=== PATIENT | male | born 1970 | race Caucasian/White ===

== ENCOUNTER 2018-03-04 05:47 | Emergency (ER) | payer BC, OTHER ==
[2018-03-04] MEDS ORDERED: LIDOCAINE 2% INJ (20 MG/ML) 20 ML MDV INJ ONE (06:37)
[2018-03-04] MEDS ORDERED: LIDOCAINE 1% INJ-PF (10 MG/ML) 30 ML SDV ONE (07:15)
--- NOTE | 2018-03-04 07:55 | ER Document Report ---
ED Wound - General Chief Complaint: Wound Infection Stated Complaint: KNEE PAIN Time Seen by Provider: 03/04/18 06:35 Information source: Patient Notes: History of complain-47 years old male presents today with right lateral side of the knee having a wound for the last 4 days. Initially started like a small pimple and then it spread. He was seen in urgent care and treated with Bactrim 1 tablet twice a day for the last 3 days. Without improvement he presents to the ED. No fever chills or other constitutional symptoms. No difficulty in walking. No difficulty in bending the knee. REVIEW OF SYSTEMS: CONSTITUTIONAL : Denies fever, chills, or sweats. Denies recent illness. EENT: Denies eye, ear, throat, or mouth pain or symptoms. Denies nasal or sinus congestion or discharge. Denies throat, tongue, or mouth swelling or difficulty swallowing. CARDIOVASCULAR: Denies chest pain. Denies palpitations or racing or irregular heart beat. Denies ankle edema. RESPIRATORY: Denies cough, cold, or chest congestion. Denies shortness of breath, difficulty breathing, or wheezing. GASTROINTESTINAL: Denies abdominal pain or distention. Denies nausea, vomiting , or diarrhea. Denies blood in vomitus, stools, or per rectum. Denies black, tarry stools. Denies constipation. GENITOURINARY: Denies difficulty urinating, painful urination, burning, frequency, blood in urine, or discharge. MUSCULOSKELETAL: Denies back or neck pain or stiffness. Denies joint pain or swelling. SKIN: Denies rash, lesions or sores. HEMATOLOGIC : Denies easy bruising or bleeding. LYMPHATIC: Denies swollen, enlarged glands. NEUROLOGICAL: Denies confusion or altered mental status. Denies passing out or loss of consciousness. Denies dizziness or lightheadedness. Denies headache. Denies weakness or paralysis or loss of use of either side. Denies problems with gait or speech. Denies sensory loss, numbness, or tingling. Denies seizures. PSYCHIATRIC: Denies anxiety or stress. Denies depression, suicidal ideation, or homicidal ideation. ALL OTHER SYSTEMS REVIEWED AND NEGATIVE. Dictation was performed using [employer] voice recognition software PHYSICAL EXAMINATION: GENERAL: Well-appearing, well-nourished and in no acute distress. HEAD: Atraumatic, normocephalic. EYES: Pupils equal round and reactive to light, extraocular movements intact, sclera anicteric, conjunctiva are normal. ENT: Nares patent, oropharynx clear without exudates. Moist mucous membranes. NECK: Normal range of motion, supple without lymphadenopathy LUNGS: Breath sounds clear to auscultation bilaterally and equal. No wheezes rales or rhonchi. HEART: Regular rate and rhythm without murmurs ABDOMEN: Soft, nontender, nondistended abdomen. No guarding, no rebound. No masses appreciated. Musculoskeletal: Normal range of motion, no pitting or edema. No cyanosis. Examination of the knee- NEUROLOGICAL: Cranial nerves grossly intact. Normal speech, normal gait. Normal sensory, motor exams PSYCH: Normal mood, normal affect. SKIN: Skin over the right knee shows, 2 cm area of induration and purulent discharge surrounded by 6 cm circumference Zuly erythema which is warm and tender to touch. Examination of the knee-there is no fluid fluctuation in the joint, he was able to flex and extend. - HPI Patient complains to provider of: Wound infection. No: Abrasion, Laceration, Puncture wound, Stab wound, Crush injury, Contusion, Hematoma, Post surgical bleeding, Post surgical problem, Incision problem, Other Onset/Duration: Gradual Quality of pain: Burning Severity: Moderate Pain Level: 2 Context: denies: Injury, Spontaneous, Work related, Other Skin Color: No: Normal, [place], Pale, Flushed, Erythema, Ang, Dusky, Mottled, Ashen, Cyanotic, Blackened, [place], Jaundiced, Hypopigmentation, Petechiae, Ecchymosis, Hyperpigmentation, Plethora, Other - Related Data Allergies/Adverse Reactions: No Known Allergies Allergy (Unverified 01/11/11 08:26) Past Medical History - Social History Smoking Status: Never Smoker Cigarette use (# per day): No Chew tobacco use (# tins/day): No Smoking Education Provided: No Frequency of alcohol use: Rare Drug Abuse: None Lives with: Family Family History: Reviewed & Not Pertinent Patient has suicidal ideation: No Patient has homicidal ideation: No - Past Medical History Cardiac Medical History: Denies: Hx Coronary Artery Disease, Hx Heart Attack, Hx Hypertension Pulmonary Medical History: Denies: Hx Asthma, Hx Bronchitis, Hx COPD, Hx Pneumonia Neurological Medical History: Denies: Hx Cerebrovascular Accident, Hx Seizures Renal/ Medical History: Denies: Hx Peritoneal Dialysis Musculoskeltal Medical History: Denies Hx Arthritis Past Surgical History: Denies: Hx Pacemaker Review of Systems - Review of Systems Constitutional: denies: No symptoms reported, See HPI, Chills, Diaphoresis, Fever, Malaise, Weakness, Other, Weight gain, Weight loss, Recent illness EENT: denies: No symptoms reported, See HPI, Eye pain, Eye discharge, Blurred vision, Tearing, Double vision, Ear pain, Ear discharge, Nose pain, Nose congestion, Nose discharge, Sinus pressure, Sinus discharge, Throat pain, Difficulty swallowing, Throat swelling, Mouth pain, Mouth swelling, Dental problem, Vertigo, Other Cardiovascular: denies: No symptoms reported, See HPI, Chest pain, Palpitations , Heart racing, Orthopnea, Dyspnea, Syncope, Dizziness, Lightheaded, Edema, Other, Paroxysmal Nocturnal Dysp Respiratory: denies: No symptoms reported, See HPI, Cough, Hurts to breathe, Hemoptysis, Short of breath, Sputum, Stridor, Wheezing, Other Gastrointestinal: denies: No symptoms reported, See HPI, Abdomen distended, Abdominal pain, Diarrhea, Nausea, Vomiting, Constipation, Blood streaked bowels , Poor appetite, Poor fluid intake, Blood in vomit, Black stools, Rectal bleeding, Last bowel movement, Fecal incontinence, Other Genitourinary: denies: No symptoms reported, See HPI, Burning, Dysuria, Discharge, Frequency, Flank pain, Hematuria, Incontinence, Pain, Urgency, Retention, Other Musculoskeletal: denies: No symptoms reported, See HPI, Back pain, Gout, Joint pain, Joint swelling, Muscle pain, Muscle stiffness, Neck pain, Deformity, Leg swelling, Ankle swelling, Other Skin: See HPI Neurological/Psychological: denies: No symptoms reported, See HPI, Confusion, Dementia, Depression, Hallucinations, Anxiety, Homicidal ideation, Sensory change, Weakness, Gait changes, Loss of power, Paralysis, Seizure, Lost consciousness, Headaches, Speech impairment, Numbness, Suicidal ideation, Tingling, Tremor, Other Physical Exam - Vital signs Vitals: Temp Pulse Resp BP Pulse Ox 98.2 F 68 16 153/80 H 99 03/04/18 05:48 03/04/18 05:48 03/04/18 05:48 03/04/18 05:48 03/04/18 05:48 - Notes Notes: Dictated Course - Vital Signs Vital signs: Temp Pulse Resp BP Pulse Ox 98.2 F 68 16 153/80 H 99 03/04/18 05:48 03/04/18 05:48 03/04/18 05:48 03/04/18 05:48 03/04/18 05:48 Procedures - Additional Procedures Incision and drainage of abscess Time performed: 07:30 - Right knee abscess Notes: 03/04/18 08:01 Under aseptic condition using sterile technique after cleaning with Betadine around the abscess infiltrated with lidocaine around the abscess. Subsequently using #11 blade an incision was made, drained purulent fluid. This was sent for culture. Subsequently the cavity was debrided, cleaned irrigated, packed with iodoform gauze. And sent home without any complications. Wound was dressed. Discharge - Discharge Clinical Impression: Abscess of knee, right Condition: Fair Disposition: HOME, SELF-CARE Instructions: Post Incision and Drainage Prescriptions: Ibuprofen 800 mg PO BID #30 tablet Referrals: KELLY HATHAWAY MD [Primary Care Provider] - Follow up as needed
[2018-03-04 08:15] VITALS: BP 132/88
== END 2018-03-04 08:13 | disposition home or self-care (01) ==
LOC: ER 05:47
DX: L02.415 Cutaneous abscess of right lower limb (principal)
CPT/HCPCS: 99283; 87070; 87205; 87077; 87186; 10060; J3490 ×2

== ENCOUNTER → 2020-07-07 | Day surgery (SDC) | payer BC ==
[~2020-07-07] MED LIST: BUPIVACAINE HCL 0.5 % INJ/PF 30 ML SDV ONE; LIDOCAINE 1% INJ-PF (10 MG/ML) 30 ML SDV ONE; METHYLPREDNISOLONE ACETATE INJ 80 MG/1 ML VIAL ONE
--- NOTE | 2020-07-07 14:05 | RADIOLOGY REPORT (SQ) ---
EXAM DESCRIPTION: FLUORO/NEEDLE PLACEMENT; INJECT/ASPIR HIP/SHLDR/KNEE IMAGES COMPLETED DATE/TIME: 07/07/2020 1:36 pm REASON FOR STUDY: M16.11 UNILATERAL PRIMARY OSTEOARTHRITIS, RIGHT HIP M16.11 UNILATERAL PRIMARY OST EOARTHRITIS, RIGHT HIP COMPARISON: None FLUOROSCOPY TIME: 0.2 minutes of fluoroscopy was used. 1 images saved to PACS. LIMITATIONS: None. PROCEDURE: SITE OF INJECTION: The right hip LOCALIZING CONTRAST TYPE AND DOSE: 2 mL Omnipaque 300 MEDICATION TYPE AND DOSE: 80 mg Depo-Medrol and 7 mL Sensorcaine Using local anesthesia and sterile technique with fluoroscopic guidance, the needle was advanced into the joint. Iodinated contrast was injected to verify intraarticular placement. This was followed by therapeutic injection of the indicated medications. The needle was removed. There were no immediat e complications. Preprocedure pain level: 1.5/5. Postprocedure pain level: 0/5. IMPRESSION: THERAPEUTIC INJECTION OF THE RIGHT HIP JOINT ABOVE. COMMENT: Patient medication list reviewed: Yes- Quality ID# [id number]:Eligible professional attests to doc umenting in the medical record they obtained, updated, or reviewed the patient's current medications. . Quality ID 145: Final reports for procedures using fluoroscopy that document radiation exposure sharon hardeep, or exposure time and number of fluorographic images (if radiation exposure indices are not avail able) TECHNICAL DOCUMENTATION: JOB ID: [id number] 2010 [employer]- All Rights Reserved Reading location - IP/workstation name: [email or web address] [id number]
--- NOTE | 2020-07-07 14:05 | RADIOLOGY REPORT (SQ) ---
EXAM DESCRIPTION: FLUORO/NEEDLE PLACEMENT; INJECT/ASPIR HIP/SHLDR/KNEE IMAGES COMPLETED DATE/TIME: 07/07/2020 1:36 pm REASON FOR STUDY: M16.11 UNILATERAL PRIMARY OSTEOARTHRITIS, RIGHT HIP M16.11 UNILATERAL PRIMARY OST EOARTHRITIS, RIGHT HIP COMPARISON: None FLUOROSCOPY TIME: 0.2 minutes of fluoroscopy was used. 1 images saved to PACS. LIMITATIONS: None. PROCEDURE: SITE OF INJECTION: The right hip LOCALIZING CONTRAST TYPE AND DOSE: 2 mL Omnipaque 300 MEDICATION TYPE AND DOSE: 80 mg Depo-Medrol and 7 mL Sensorcaine Using local anesthesia and sterile technique with fluoroscopic guidance, the needle was advanced into the joint. Iodinated contrast was injected to verify intraarticular placement. This was followed by therapeutic injection of the indicated medications. The needle was removed. There were no immediat e complications. Preprocedure pain level: 1.5/5. Postprocedure pain level: 0/5. IMPRESSION: THERAPEUTIC INJECTION OF THE RIGHT HIP JOINT ABOVE. COMMENT: Patient medication list reviewed: Yes- Quality ID# [id number]:Eligible professional attests to doc umenting in the medical record they obtained, updated, or reviewed the patient's current medications. . Quality ID 145: Final reports for procedures using fluoroscopy that document radiation exposure sharon hardeep, or exposure time and number of fluorographic images (if radiation exposure indices are not avail able) TECHNICAL DOCUMENTATION: JOB ID: [id number] 2010 [employer]- All Rights Reserved Reading location - IP/workstation name: [email or web address] [id number]
== END ==
LOC: RAD 12:30
PROVIDERS: ATTEND Family Medicine
DX: M16.11 Unilateral primary osteoarthritis, right hip (principal)
CPT/HCPCS: 20610; 77002; J3490; J1040